=== PATIENT | female | born 1980 | race Native Hawaiian/Other Pacific Islander ===

== ENCOUNTER 2020-07-29 19:25 | Emergency (ER) | payer OTHER ==
[~2020-07-29] VITALS: Ht 165.1 cm; Wt 79.4 kg
[2020-07-29 20:20] LABS: PLATELET COUNT 268 K/uL (152-353)
[2020-07-29 20:31] LABS: POTASSIUM 2.4 mmol/L (3.6-5.2)
[2020-07-29 21:20] VITALS: BP 106/67; TEMP 98.7
== END 2020-07-29 21:20 | disposition home or self-care (01) ==
LOC: ED 19:38
PROVIDERS: Hospitalist
DX: U07.1 COVID-19 (principal); J12.89 Other viral pneumonia; R11.2 Nausea with vomiting, unspecified; R19.7 Diarrhea, unspecified; E87.6 Hypokalemia
CPT/HCPCS: 36415; 80053; 81000; 81025; 82150; 83690; 85027; 96360; 96375; 99284; J1100; J2405

== ENCOUNTER 2020-09-05 15:31 | Emergency (ER) | payer OTHER ==
[~2020-09-05] VITALS: Ht 165.1 cm; Wt 81.6 kg
[2020-09-05 16:39] LABS: PLATELET COUNT 254 K/uL (152-353)
[2020-09-05 16:50] LABS: POTASSIUM 3.1 mmol/L (3.6-5.2)
[2020-09-05 19:03] VITALS: BP 110/70; TEMP 98.1
== END 2020-09-05 19:03 | disposition home or self-care (01) ==
LOC: ED 15:31
PROVIDERS: Family Medicine
DX: M79.18 Myalgia, other site (principal)
CPT/HCPCS: 36415; 80053; 81000; 82150; 83690; 85027; 96374; 96375; 99284; J1885; J2060; J2405; Q9963

== ENCOUNTER 2021-07-24 17:18 | Emergency (ER) | payer OTHER ==
[~2021-07-24] VITALS: Ht 165.1 cm; Wt 83.9 kg
[2021-07-24 20:23] VITALS: BP 161/99; TEMP 98.9
== END 2021-07-24 20:23 | disposition home or self-care (01) ==
LOC: ED 17:18
DX: L03.111 Cellulitis of right axilla (principal); I10 Essential (primary) hypertension
CPT/HCPCS: 90471; 90715; 96372; 99284; J0696; J1885